=== PATIENT | male | born 2000 | race Caucasian/White ===

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

== ENCOUNTER 2021-10-29 15:39 | Outpatient (REF) | payer BC, SELFPAY ==
[2021-10-30 12:03] LABS: HSV 1 DNA Result Positive (Negative); HSV 2 DNA Result Negative (Negative)
[2021-10-30 13:50] LABS: COVID-19 RT-PCR UVMMC Result Negative (Negative)
== END 2021-10-29 15:40 | disposition home or self-care (01) ==
LOC: LBN 15:39
PROVIDERS: PCP Family Medicine; Visit Provider Family Medicine
DX: R68.83 Chills (without fever) (principal); J02.9 Acute pharyngitis, unspecified; K12.0 Recurrent oral aphthae; Z20.822 Contact with and (suspected) exposure to COVID-19
CPT/HCPCS: 87529; U0003; 87070